=== PATIENT | female | born 1985 | race Caucasian/White ===

== ENCOUNTER 2017-01-04 20:36 | Emergency (ER) | payer BC ==
[~2017-01-04] VITALS: Ht 160 cm; Wt 65.3 kg
[2017-01-04 20:36] VITALS: BP_SYST 125
[~2017-01-04 20:36] MED LIST: FLUORESCEIN SODIUM 1 MG OPHTHALMIC STRIP OP ONE
--- NOTE | 2017-01-04 20:36 | NUR ---
Pt in waiting room awaiting available bed.Stable.
--- NOTE | 2017-01-04 21:35 | NUR ---
Patient to ER bed 7 to gown for evaluation. Side rails up.
--- NOTE | 2017-01-04 21:40 | NUR ---
pt in bed 7 with c/o right eye pain Kirsty Rizzo aware.
--- NOTE | 2017-01-04 21:47 | NUR ---
RUCHI Rizzo RN TRAUMA at bedside examining patient.
--- NOTE | 2017-01-04 22:43 | NUR ---
Becka brandt in ED - 01/05/17 at 0101 by KADIE [facility] up. Report given to ERNIE MYLES.
--- NOTE | 2017-01-04 23:00 | NUR ---
Becka brandt in ED - 01/05/17 at 0102 by SDEDWLA Pt in bed 7 c/o right eye pain s/p scratched , Kirsty Rizzo aware.
--- NOTE | 2017-01-04 23:30 | NUR ---
Patient given written and verbal discharge instructions and verbalizes understanding. ER MD discussed with patient the results and treatment provided. Given copies of tests performed in ER. Patient in stable condition. ID arm band removed. Rx of eye drops given. Patient educated on pain management and to follow up with PMD. Pain Scale 0/10. Opportunity for questions provided and answered.
[2017-01-04 23:45] VITALS: BP_SYST 125
== END 2017-01-04 23:30 | disposition home or self-care (01) ==
LOC: SED 20:36
DX: S05.01XA Injury of conjunctiva and corneal abrasion without foreign body, right eye, initial encounter (principal); F32.9 Major depressive disorder, single episode, unspecified; Z90.49 Acquired absence of other specified parts of digestive tract; W50.4XXA Accidental scratch by another person, initial encounter; Y93.89 Activity, other specified; Y99.8 Other external cause status; Y92.89 Other specified places as the place of occurrence of the external cause
CPT/HCPCS: 99283

== ENCOUNTER 2018-09-10 23:02 | Emergency (ER) | payer BC ==
[~2018-09-10] VITALS: Ht 160 cm; Wt 65.8 kg
[2018-09-10 23:15] VITALS: BP_SYST 124
[2018-09-10] MEDS ORDERED: NACL 0.9% 1,000 ML IV ONE (23:30)
[2018-09-10] MEDS ORDERED: ONDANSETRON HCL 4 MG/2 ML VIAL IVP ONE (23:30)
[2018-09-10 23:37] LABS: BLOOD, URINE NEGATIVE (NEGATIVE); CLARITY/URINE CLEAR (CLEAR); COLOR,URINE YELLOW (YELLOW); GLUCOSE,URINE NEGATIVE (NEGATIVE); KETONES,URINE 2+ (NEGATIVE); LEUKOCYTE ESTERASE ,URINE NEGATIVE (NEGATIVE); NITRITE, URINE NEGATIVE (NEGATIVE); PROTEIN URINE NEGATIVE (NEGATIVE); UROBILINOGEN,URINE 0.2 (0.2-1.0)
[2018-09-10 23:47] LABS: BILIRUBIN,URINE NEGATIVE (NEGATIVE); RBC,URINE 0-3 /HPF (0-3); WBC,URINE 0-3 /HPF (0-3)
[2018-09-10 23:48] LABS: BACTERIA,URINE FEW /HPF (None Seen)
[2018-09-11 00:19] LABS: BASOPHILS % (AUTO) 0.2 % (0.0-2.0); EOSINOPHILS % (AUTO) 0.1 % (0.0-4.0); HEMATOCRIT 39.2 % (36-48); HEMOGLOBIN 13.6 g/dL (12.0-16.0); LYMPHOCYTES # (AUTO) 0.8 K/uL (1.0-5.5); LYMPHOCYTES % (AUTO) 9.1 % (20.5-51.5); MEAN CORPUSCULAR HEMOGLOBIN 32 pg (27-31); MEAN CORPUSCULAR HGB CONC 35 % (32-36); MEAN CORPUSCULAR VOLUME 92 fL (79.0-98.0); MONOCYTES # (AUTO) 0.3 K/uL (0.0-1.0); MONOCYTES % (AUTO) 3.7 % (1.7-9.3); NEUTROPHILS # (AUTO) 7.9 K/uL (1.8-7.7); NEUTROPHILS % (AUTO) 86.9 % (40.0-70.0); PLATELET COUNT (AUTO) 307 K/uL (130-430); RED BLOOD CELL COUNT(AUTO) 4.28 MIL/uL (4.2-6.2); RED CELL DISTRIBUTION WIDTH 11.7 % (9.0-15.0)
[2018-09-11 00:33] LABS: CALCIUM 7.7 mg/dL (8.4-11.0); CREATININE 0.72 mg/dL (0.55-1.30)
[2018-09-11 00:44] LABS: ALBUMIN 3.2 g/dL (3.4-4.8); TOTAL BILIRUBIN 0.5 mg/dL (0.0-1.0)
[2018-09-11] MEDS ORDERED: POTASSIUM CHLORIDE 20 MEQ/PKT PACKET PO ONE (01:15)
[2018-09-11 01:30] VITALS: BP_SYST 120
== END 2018-09-11 01:30 | disposition home or self-care (01) ==
LOC: SED 23:02
DX: K52.9 Noninfective gastroenteritis and colitis, unspecified (principal); E87.6 Hypokalemia; R03.0 Elevated blood-pressure reading, without diagnosis of hypertension; F32.9 Major depressive disorder, single episode, unspecified
CPT/HCPCS: 36415; 80053; 81000; 81025; 83690; 85025; 96361; 96374; 99283; J2405; J7030

== ENCOUNTER 2019-03-16 14:48 | Emergency (ER) | payer BC ==
[~2019-03-16] VITALS: Ht 160 cm; Wt 63.0 kg
[2019-03-16 14:50] VITALS: BP_SYST 124
--- NOTE | 2019-03-16 14:50 | NUR ---
Patient to ER bed 8 to gown for evaluation. Side rails up. Report given to SHAMEKA Miller.
--- NOTE | 2019-03-16 15:00 | NUR ---
ER Dr. Barragan at bedside examining patient.
--- NOTE | 2019-03-16 15:02 | NUR ---
Pt AAOx4 ambulated into ED c/o dull mild 1/10 chest pain radiating to back and arms possibly r/t pulling muscle. Pt denies N/V/D/F/SOB. No other injuries/complaints per pt/noted. Will continue to monitor.
[2019-03-16 15:03] VITALS: BP_SYST 135
--- NOTE | 2019-03-16 15:03 | NUR ---
Patient given written and verbal discharge instructions and verbalizes understanding. ER MD Barragan discussed with patient the results and treatment provided. Patient in stable condition. ID arm band removed. Rx of Naprosyn given. Patient educated on pain management and to follow up with PMD. Pain Scale 0. Opportunity for questions provided and answered. Medication side effect fact sheet provided.
== END 2019-03-16 15:03 | disposition home or self-care (01) ==
LOC: SED 14:48
DX: S23.9XXA Sprain of unspecified parts of thorax, initial encounter (principal); X58.XXXA Exposure to other specified factors, initial encounter; Y93.89 Activity, other specified; Y92.89 Other specified places as the place of occurrence of the external cause; Y99.8 Other external cause status
CPT/HCPCS: 99282

== ENCOUNTER 2020-06-26 00:20 | Inpatient (IN) | payer BC, SELFPAY ==
[~2020-06-26] VITALS: Ht 160 cm; Wt 69.4 kg
[2020-06-26] MEDS ORDERED: LR 1,000 ML IV SCH (00:49)
[2020-06-26] MEDS ORDERED: OXYTOCIN/0.9 % SODIUM CHLORIDE 1,000 ML IV SCH ×2 (00:49→16:39)
[2020-06-26] MEDS ORDERED: LR 1,000 ML IV ONE (00:49)
[2020-06-26] MEDS ORDERED: AMPICILLIN SODIUM 2 GM in NS 100 ML IV ONE (01:00)
[2020-06-26] MEDS ORDERED: TERBUTALINE SULFATE 1 MG/ML VIAL SUBCUT ONE (01:00)
[2020-06-26] MEDS ORDERED: AMPICILLIN SODIUM 2 GM VIAL ONE (01:27)
[2020-06-26 01:37] LABS: BASOPHILS # (AUTO) 0.1 K/uL (0.0-0.2); BASOPHILS % (AUTO) 0.9 % (0.0-2.0); EOSINOPHILS # (AUTO) 0.1 K/uL (0.0-0.4); EOSINOPHILS % (AUTO) 0.7 % (0.0-4.0); HEMATOCRIT 31.7 % (36-48); HEMOGLOBIN 10.3 g/dL (12.0-16.0); LYMPHOCYTES % (AUTO) 18.4 % (20.5-51.5); MEAN CORPUSCULAR HEMOGLOBIN 28 pg (27-31); MEAN CORPUSCULAR HGB CONC 33 % (32-36); MEAN CORPUSCULAR VOLUME 85 fL (79.0-98.0); MONOCYTES # (AUTO) 0.7 K/uL (0.0-1.0); MONOCYTES % (AUTO) 6.3 % (1.7-9.3); NEUTROPHILS % (AUTO) 73.7 % (40.0-70.0); PLATELET COUNT (AUTO) 342 K/uL (130-430); RED BLOOD CELL COUNT(AUTO) 3.72 MIL/uL (4.2-6.2); RED CELL DISTRIBUTION WIDTH 15.4 % (9.0-15.0); WHITE BLOOD COUNT (AUTO) 10.9 K/uL (4.8-10.8)
[2020-06-26 02:12] VITALS: BP_SYST 115
[2020-06-26] MEDS: AMPICILLIN SODIUM 1 GM in NS 50 ML IV SCH ×4 (05:00→12:29)
[2020-06-26] MEDS ORDERED: AMPICILLIN SODIUM 1 GM VIAL ONE (05:14)
[2020-06-26] MEDS ORDERED: fentaNYL CITRATE/PF 100 MCG/2 ML AMP ONE (10:56)
[2020-06-26] MEDS ORDERED: ROPIVACAINE HCL/PF 0.2% 200 ML ONE (10:57)
[2020-06-26] MEDS ORDERED: OXYTOCIN/0.9 % SODIUM CHLORIDE 1,000 ML IV ONE (16:39)
[2020-06-26] MEDS ORDERED: MEASLES,MUMPS&RUBELLA VACC/PF 12500 UNIT/0.5 ML VIAL SUBQ PRN (16:45)
[2020-06-26] MEDS ORDERED: HYDROcodone/ACETAMIN 5-325 MG TAB (NORCO/ VICODIN) PO PRN (16:45)
[2020-06-26] MEDS ORDERED: WITCH HAZEL LEAF 1 MED.PAD MED.PAD TP PRN (16:45)
[2020-06-26] MEDS ORDERED: SENNOSIDES/DOCUSATE SODIUM 1 TAB TABLET(SENOKOT-S) PO PRN (16:45)
[2020-06-26] MEDS ORDERED: HYDROCORTISONE 0.5%, 28.35 GM TOPICAL CREAM TP PRN (16:45)
[2020-06-26] MEDS ORDERED: METHYLERGONOVINE MALEATE 0.2 MG TABLET PO PRN (16:45)
[2020-06-26] MEDS ORDERED: DERMOPLAST SPRAY TP PRN (16:45)
[2020-06-26] MEDS ORDERED: OXYCODONE/ACETAMINOPHEN 5-325 TABLET PO PRN (16:45)
[2020-06-26] MEDS ORDERED: DIPH-TET-PERTUS Vaccine 0.5 ML VIAL (ADACEL) I.M. PRN (16:45)
[2020-06-26] MEDS ORDERED: LANOLIN 7 GM OINT. TP PRN (16:45)
[2020-06-26] MEDS ORDERED: RHO(D) IMMUNE GLOBULIN/MALTOSE 1500 UNITS/1.3 ML (WINHRO) IM PRN (16:45)
[2020-06-26] MEDS ORDERED: NALOXONE HCL 0.4 MG/ML AMP (NARCAN) IVP PRN (16:45)
[2020-06-26] MEDS ORDERED: ANUSOL 1 EA SUPP.RECT (PREPARATION H) RC PRN (16:45)
[2020-06-26] MEDS ORDERED: TEMAZEPAM 15 MG CAPSULE PO PRN (21:00)
[2020-06-26] MEDS: IBUPROFEN 600 MG TABLET PO SCH (23:55)
[2020-06-26] MEDS: OXYCODONE/ACETAMINOPHEN 5-325 TABLET PO PRN (23:59)
[2020-06-26] MEDS: DOCUSATE SODIUM 100 MG CAPSULE PO PRN (23:59)
[2020-06-27] MEDS: IBUPROFEN 600 MG TABLET PO SCH ×4 (05:58→18:24)
[2020-06-27] MEDS: OXYCODONE/ACETAMINOPHEN 5-325 TABLET PO PRN (05:59)
[2020-06-27] MEDS: DOCUSATE SODIUM 100 MG CAPSULE PO PRN ×2 (06:00→18:23)
[2020-06-27 06:45] LABS: BASOPHILS # (AUTO) 0.1 K/uL (0.0-0.2); BASOPHILS % (AUTO) 0.5 % (0.0-2.0); EOSINOPHILS # (AUTO) 0.1 K/uL (0.0-0.4); EOSINOPHILS % (AUTO) 1.1 % (0.0-4.0); HEMATOCRIT 29.3 % (36-48); HEMOGLOBIN 9.8 g/dL (12.0-16.0); LYMPHOCYTES # (AUTO) 2.2 K/uL (1.0-5.5); MEAN CORPUSCULAR HEMOGLOBIN 28 pg (27-31); MEAN CORPUSCULAR HGB CONC 33 % (32-36); MEAN CORPUSCULAR VOLUME 85 fL (79.0-98.0); MONOCYTES # (AUTO) 0.8 K/uL (0.0-1.0); MONOCYTES % (AUTO) 7.7 % (1.7-9.3); NEUTROPHILS # (AUTO) 6.8 K/uL (1.8-7.7); NEUTROPHILS % (AUTO) 68.7 % (40.0-70.0); PLATELET COUNT (AUTO) 256 K/uL (130-430); RED BLOOD CELL COUNT(AUTO) 3.46 MIL/uL (4.2-6.2); RED CELL DISTRIBUTION WIDTH 15.2 % (9.0-15.0); WHITE BLOOD COUNT (AUTO) 9.9 K/uL (4.8-10.8)
[2020-06-27] MEDS ORDERED: BUPIVACAINE /PF 0.25% 30 ML VIAL INJ ONE (17:49)
[2020-06-28] MEDS: IBUPROFEN 600 MG TABLET PO SCH ×2 (05:55→12:29)
[2020-06-28] MEDS: DOCUSATE SODIUM 100 MG CAPSULE PO PRN (05:58)
== END 2020-06-28 15:50 | disposition home or self-care (01) | DRG 807 ==
LOC: SPU 00:20
PROVIDERS: ADMIT Specialist; ATTEND Specialist
PROC: 10E0XZZ Delivery of Products of Conception, External Approach (ICD-10-PCS; principal; 2020-06-27)
DX: O80 Encounter for full-term uncomplicated delivery (principal); Z37.0 Single live birth; Z20.828 Contact with and (suspected) exposure to other viral communicable diseases; Z3A.38 38 weeks gestation of pregnancy
CPT/HCPCS: 36415; 85025; 86592; 86886; 86900; 86901; J0290; J2590; J3010; J3490; J7060; J7120